=== PATIENT | female | born 1990 | race Caucasian/White ===

== ENCOUNTER → 2024-10-03 09:38 | Outpatient (REF) | payer OTHER, SELFPAY | LOC: WDC 09:38 | PROVIDERS: ATTENDING PHYSICIAN Obstetrics & Gynecology Gynecology; FAMILY PHYSICIAN Family Medicine | DX: R92.8 Other abnormal and inconclusive findings on diagnostic imaging of breast (principal) | CPT/HCPCS: 76642 ==

== ENCOUNTER → 2025-04-03 17:46 | Outpatient (REF) | payer OTHER, SELFPAY | LOC: WDC 17:46 | PROVIDERS: ATTENDING PHYSICIAN Obstetrics & Gynecology Gynecology; FAMILY PHYSICIAN Family Medicine | DX: R92.8 Other abnormal and inconclusive findings on diagnostic imaging of breast (principal) | CPT/HCPCS: 77061; 77065 ==